=== PATIENT | male | born 1980 ===

== ENCOUNTER 2016-10-28 14:34 | Emergency (ER) | payer OTHER ==
[2016-10-28 14:46] VITALS: BP 121/80; PULSE 72; RESP 18; TEMP 98.5; O2SAT 99
--- NOTE | 2016-10-28 15:06 | ED PDOC ---
HPI: General Adult Time Seen by Provider: 10/28/16 14:47 Chief Complaint (Nursing): Cough, Cold, Congestion Chief Complaint (Provider): Cough, Cold, Congestion History Per: Patient History/Exam Limitations: no limitations Onset/Duration Of Symptoms: Days (x2) Current Symptoms Are (Timing): Still Present Additional Complaint(s): 15:00 Gibson Scott is a 36 year old male that presents to the ED with a chief complaint of a productive cough with green sputum and congestion that he has been experiencing for the past two days. Patient reports that he has been taking Dayquil and Nyquil in an attempt to relieve his symptoms. He denies any fevers and is not a smoker. Past Medical History Reviewed: Historical Data, Nursing Documentation, Vital Signs Vital Signs: Last Vital Signs Temp 98.5 F 10/28/16 14:42 Pulse 72 10/28/16 14:42 Resp 18 10/28/16 14:42 BP 121/80 10/28/16 14:42 Pulse Ox 99 10/28/16 15:07 - Medical History PMH: No Chronic Diseases - Family History Family History: States: Unknown Family Hx - Home Medications Home Medications: Ambulatory Orders Medication Instructions Recorded Guaifenesin/Pseudoephedrne HCl 1 tab PO DAILY PRN #30 ter 10/28/16 [Mucinex D 600 mg-60 mg] Promethazine HCl/Codeine 5 ml PO HS #80 ml 10/28/16 [Prometh-Codein 6.25-10 mg/5 ml] - Allergies Allergies/Adverse Reactions: Allergies Allergy/AdvReac Type Severity Reaction Status Date / Time No Known Allergies Allergy Verified 10/28/16 14:41 Review of Systems Constitutional: Negative for: Fever ENT: Positive for: Nose Congestion Respiratory: Positive for: Cough (productive, green sputum) Physical Exam - Reviewed Nursing Documentation Reviewed: Yes Vital Signs Reviewed: Yes - Physical Exam Appears: Positive for: Non-toxic, No Acute Distress Head Exam: Positive for: ATRAUMATIC, NORMOCEPHALIC Skin: Positive for: Normal Color, Warm ENT: Positive for: Normal ENT Inspection, Other (ears normal) Cardiovascular/Chest: Positive for: Regular Rate, Rhythm. Negative for: Murmur Respiratory: Positive for: Normal Breath Sounds. Negative for: Respiratory Distress Neurologic/Psych: Positive for: Alert, Oriented - ECG O2 Sat by Pulse Oximetry: 99 (RA) Pulse Ox Interpretation: Normal Medical Decision Making Medical Decision Makin:06 Impression: Possible Viral Infection Plan: * Chest X-Ray * Reevaluation * * * CXR: SALOMÓN, a read by REJI Scribe Attestation: Documented by Marielena Ruiz, acting as a scribe for Anamaria Farooq PA-C. Provider Scribe Attestation: All medical record entries made by the Scribe were at my direction and personally dictated by me. I have reviewed the chart and agree that the record accurately reflects my personal performance of the history, physical exam, medical decision making, and the department course for this patient. I have also personally directed, reviewed, and agree with the discharge instructions and disposition. Disposition - Clinical Impression Clinical Impression: Upper respiratory infection - Patient ED Disposition Is Patient to be Admitted: No - Disposition Disposition: Routine/Home Disposition Time: 17:08 Condition: STABLE Prescriptions: Guaifenesin/Pseudoephedrne HCl [Mucinex D 600 mg-60 mg] 1 tab PO DAILY PRN #30 ter PRN Reason: congestion Promethazine HCl/Codeine [Prometh-Codein 6.25-10 mg/5 ml] 5 ml PO HS #80 ml Instructions: Upper Respiratory Infection (ED) Forms: [facility] ED School/Work Excuse - POA Present On Arrival: None
--- NOTE | 2016-10-28 16:03 | RAD ---
HISTORY: fever and cough COMPARISON: No prior. TECHNIQUE: Chest PA and lateral FINDINGS: LUNGS: No active pulmonary disease. PLEURA: No significant pleural effusion identified. No pneumothorax apparent. CARDIOVASCULAR: Normal. OSSEOUS STRUCTURES: No significant abnormalities. VISUALIZED UPPER ABDOMEN: Normal. OTHER FINDINGS: None. IMPRESSION: No active disease.
== END 2016-10-28 17:20 | disposition home or self-care (01) ==
LOC: H.ER 14:34
DX: J06.9 Acute upper respiratory infection, unspecified (principal); R05 Cough